=== PATIENT | female | born 1965 | race American Indian/Alaskan Native ===

== ENCOUNTER 2017-05-27 11:41 | Emergency (ER) | payer BC ==
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
[2017-05-27] MEDS ORDERED: BOOSTRIX IM ONE (15:14)
[2017-05-27 20:18] VITALS: BP 136/79
== END 2017-05-27 15:15 | disposition home or self-care (01) ==
LOC: ED 11:41
DX: L23.7 Allergic contact dermatitis due to plants, except food (principal)
CPT/HCPCS: 90471; 90715; 99282